=== PATIENT | female | born 1955 | race Caucasian/White ===

== ENCOUNTER → 2019-03-16 | Outpatient (CLI) | payer BC, OTHER ==
[~2019-03-16] MED LIST: INSULANI SC; PHENA200 PO
== END ==
LOC: LAB 17:00 → LAB SHORT 17:00
DX: N20.0 Calculus of kidney (principal); R30.0 Dysuria; M54.9 Dorsalgia, unspecified
CPT/HCPCS: 87077; 87086; 87186

== ENCOUNTER → 2019-11-05 | Outpatient (CLI) | payer BC, OTHER | END | disposition home or self-care (01) | LOC: LAB 17:19 → LAB SHORT 17:19 | DX: L08.9 Local infection of the skin and subcutaneous tissue, unspecified (principal) | CPT/HCPCS: 87070; 87075; 87077; 87147; 87186; 87205 ==

== ENCOUNTER → 2021-07-26 | Outpatient (CLI) | payer MEDICARE, BC, OTHER ==
[2021-07-26 14:26] LABS: Source, Urine Clean Catch
[2021-07-26 15:28] LABS: Bilirubin, Urine Neg (Neg); Blood, Urine 4+ (Neg); Glucose Qualitative, Urine 4+ (Neg); Ketones, Urine Neg (Neg); Leukocyte Esterase, Urine 2+ (Neg); Nitrite, Urine Neg (Neg); Protein, Urine 2+ (Neg); Urobilinogen, Urine NORM (Normal)
[2021-07-26 15:48] LABS: Appearance, Urine Hazy (Clear); Color, Urine Pale Yellow (P-Yellow)
[2021-07-26 15:49] LABS: Red Blood Cells, Urine 25-50 /hpf (0-2)
[2021-07-26 15:50] LABS: Amorphous Light (0-Heavy); Bacteria Mod /hpf; Mucus Mod (0-Heavy); Squamous Epithelial Cells Rare /hpf (Few)
== END ==
LOC: LAB SHORT 14:25
PROVIDERS: Internal Medicine
DX: R30.0 Dysuria (principal)
CPT/HCPCS: 81001

== ENCOUNTER → 2021-11-10 | Outpatient (CLI) | payer BC, OTHER, MEDICARE ==
[2021-11-10 15:45] LABS: Creatinine Urine 45.4 mg/dL (27.00-270.00)
[2021-11-10 15:46] LABS: Calcium, Urine <5.0 mg/dL (< 17.5); Calcium, Urine Calculation Unable to Calculate mg/24hrs (42.0-353.0)
== END | disposition home or self-care (01) ==
LOC: LAB 10:00 → LAB SHORT 10:00 → LAB FUT 08-11 09:40
PROVIDERS: Internal Medicine Endocrinology, Diabetes & Metabolism
DX: E83.52 Hypercalcemia (principal); N39.0 Urinary tract infection, site not specified
CPT/HCPCS: 81050; 82340; 82570